=== PATIENT | male | born 1930 | race Native Hawaiian/Other Pacific Islander ===

== ENCOUNTER 2018-09-12 04:18 | Emergency (ER) | payer OTHER, BC ==
[~2018-09-12] VITALS: Ht 182.9 cm; Wt 66.7 kg
[2018-09-12 04:55] LABS: PLATELET COUNT 244 K/uL (142-355)
[2018-09-12 05:09] LABS: POTASSIUM 3.1 mmol/L (3.6-5.2)
[2018-09-12 05:17] LABS: PARTIAL THROMBOPLASTIN TIME 25.1 SECONDS (24.5-33.6)
[2018-09-12 05:48] VITALS: BP 130/57; TEMP 97.7
== END 2018-09-12 05:48 | disposition home or self-care (01) ==
LOC: ED 04:18
PROVIDERS: Family Medicine
PROC: 0HQ0XZZ Repair Scalp Skin, External Approach (ICD-10-PCS; principal; 2018-09-12)
DX: S01.01XA Laceration without foreign body of scalp, initial encounter (principal); E87.6 Hypokalemia; W18.39XA Other fall on same level, initial encounter; Y92.018 Other place in single-family (private) house as the place of occurrence of the external cause
CPT/HCPCS: 80053; 85027; 85610; 85730; 99283

== ENCOUNTER 2018-11-15 13:09 | Outpatient (CLI) | payer OTHER, BC ==
[2018-11-15 13:28] LABS: PLATELET COUNT 160 K/uL (142-355)
[2018-11-15 13:47] LABS: POTASSIUM 3.4 mmol/L (3.6-5.2)
== END 2018-11-15 23:59 | disposition home or self-care (01) ==
LOC: LAB 13:09
PROVIDERS: Internal Medicine
DX: E78.49 Other hyperlipidemia (principal); Z79.899 Other long term (current) drug therapy
CPT/HCPCS: 80053; 80061; 85027; 86140